=== PATIENT | male | born 1975 | race Asian ===

== ENCOUNTER 2022-10-13 09:43 | Emergency (ER) | payer BC ==
[~2022-10-13] VITALS: Ht 165.1 cm; Wt 111.1 kg
--- NOTE | 2022-10-13 09:46 | NUR ---
Patient to ER bed 03 to gown for evaluation. Side rails up.
[2022-10-13 09:54] VITALS: BP_SYST 159
--- NOTE | 2022-10-13 10:00 | NUR ---
ER at bedside examining patient.
--- NOTE | 2022-10-13 10:05 | NUR ---
Pt bib from home. CC hyperglycemia. Pt C/O polyuria, polydipsia and head ache. Denies NVD, Pt states high blood sugar taken last night 500. Currently 393 taken by EMT. Pt appears obese with poor diet intake high sodium, spicy and fat content. AAOx3, skin intact, CRICKET Pt states diagnosed with diabetes 2 months ago no medications. . PMHX HTN, cholecystectomy (5 years ago)
--- NOTE | 2022-10-13 10:26 | NUR ---
# 20 gauge angiocath placed to LAC. Use of asceptic technique. Opsite placed over site. Blood return noted. Blood for lab drawn from site. Flushed with 10 cc of normal saline. No evidence of infiltration noted. Patient tolerated well.
[2022-10-13 10:35] LABS: BASOPHILS # (AUTO) 0.1 K/uL (0.0-0.2); BASOPHILS % (AUTO) 1.3 % (0.0-2.0); EOSINOPHILS # (AUTO) 0.4 K/uL (0.0-0.4); EOSINOPHILS % (AUTO) 4.5 % (0.0-4.0); HEMATOCRIT 42.4 % (36-54); HEMOGLOBIN 15.3 g/dL (14.0-18.0); LYMPHOCYTES # (AUTO) 2.3 K/uL (1.0-5.5); LYMPHOCYTES % (AUTO) 28.9 % (20.5-51.5); MEAN CORPUSCULAR HEMOGLOBIN 31 pg (27-31); MEAN CORPUSCULAR HGB CONC 36 % (32-36); MEAN CORPUSCULAR VOLUME 86 fL (79.0-98.0); MONOCYTES # (AUTO) 0.6 K/uL (0.0-1.0); MONOCYTES % (AUTO) 7.3 % (1.7-9.3); NEUTROPHILS # (AUTO) 4.6 K/uL (1.8-7.7); PLATELET COUNT (AUTO) 271 K/uL (130-430); RED BLOOD CELL COUNT(AUTO) 4.95 MIL/uL (4.2-6.2); RED CELL DISTRIBUTION WIDTH 12.5 % (9.0-15.0)
--- NOTE | 2022-10-13 10:47 | NUR ---
urine specimen collected sent to lab.
[2022-10-13 10:48] LABS: ANION GAP 9 (5-15); CALCIUM 9.4 mg/dL (8.4-11.0); CHLORIDE 98 mmol/L (98-107); CREATININE 1.01 mg/dL (0.55-1.30); GLUCOSE 373 mg/dL (70-99); UREA NITROGEN, BLOOD 26 mg/dL (8-21)
[2022-10-13 10:51] LABS: GFR AFRICAN AMERICAN 102 mL/min (>90)
[2022-10-13 10:53] LABS: ALANINE AMINOTRANSFERASE 95 U/L (12-78); ALBUMIN 4.4 g/dL (3.4-4.8); ASPARTATE AMINOTRANSFERASE 37 U/L (10-37); TOTAL BILIRUBIN 1.1 mg/dL (0.0-1.0)
[2022-10-13 10:56] LABS: BILIRUBIN,URINE NEGATIVE (NEGATIVE); BLOOD, URINE NEGATIVE (NEGATIVE); CLARITY/URINE CLEAR (CLEAR); COLOR,URINE YELLOW (YELLOW); GLUCOSE,URINE 3+ (NEGATIVE); KETONES,URINE 1+ (NEGATIVE); LEUKOCYTE ESTERASE ,URINE NEGATIVE (NEGATIVE); NITRITE, URINE NEGATIVE (NEGATIVE); PH,URINE 5.5 (5.0-8.0); PROTEIN URINE TRACE (NEGATIVE); UROBILINOGEN,URINE 0.2 (0.2-1.0)
[2022-10-13 10:58] LABS: ACETONE, SERUM TRACE (NEGATIVE)
[2022-10-13] MEDS ORDERED: INSULIN REGULAR, HUMAN 100 UNITS/ML, 3 ML VIAL SUBCUT ONE (11:15)
[2022-10-13] MEDS ORDERED: METF-518 PO (11:16)
--- NOTE | 2022-10-13 13:06 | NUR ---
blood sugar 389 pt is awake alert and oriented.
--- NOTE | 2022-10-13 13:34 | NUR ---
Patient given written and verbal discharge instructions and verbalizes understanding. ER MD discussed with patient the results and treatment provided. Patient in stable condition. ID arm band removed. IV catheter removed intact and dressing applied, no active bleeding. Rx of Metformin given. Patient educated on diabetic onset diet management and to follow up with PMD. Opportunity for questions provided and answered. Medication side effect fact sheet provided.
[2022-10-13 14:44] VITALS: BP_SYST 149
[2022-10-14] MEDS ORDERED: METF-379 PO (04:30)
== END 2022-10-13 14:44 | disposition home or self-care (01) ==
LOC: SED 09:43
DX: E11.65 Type 2 diabetes mellitus with hyperglycemia (principal); R73.9 Hyperglycemia, unspecified; R53.1 Weakness; Z79.899 Other long term (current) drug therapy
CPT/HCPCS: 36415; 80053; 81003; 82009; 82962; 83605; 85025; 99283